=== PATIENT | male | born 1935 | race Caucasian/White ===

== ENCOUNTER → 2023-04-06 10:58 | Outpatient (REF) | payer OTHER, SELFPAY | LOC: RAD 10:58 | PROVIDERS: ATTENDING PHYSICIAN Physical Medicine & Rehabilitation Pain Medicine; FAMILY PHYSICIAN Family Medicine | DX: Z95.0 Presence of cardiac pacemaker (principal) | CPT/HCPCS: 71046 ==

== ENCOUNTER → 2023-04-09 13:17 | Outpatient (REF) | payer OTHER, SELFPAY | LOC: MRI 13:17 | PROVIDERS: ATTENDING PHYSICIAN Physical Medicine & Rehabilitation Pain Medicine; FAMILY PHYSICIAN Family Medicine | DX: M54.50 Low back pain, unspecified (principal); M51.36 Other intervertebral disc degeneration, lumbar region; M54.16 Radiculopathy, lumbar region | CPT/HCPCS: 72158; A9575 ==

== ENCOUNTER → 2023-05-24 12:20 | Outpatient (REF) | payer OTHER, SELFPAY | LOC: RSP 12:20 | PROVIDERS: ATTENDING PHYSICIAN Internal Medicine Cardiovascular Disease; FAMILY PHYSICIAN Family Medicine | DX: J98.4 Other disorders of lung (principal); R06.09 Other forms of dyspnea; R53.83 Other fatigue | CPT/HCPCS: 94727; 94729; 88738; 94010; 94060 ==

== ENCOUNTER → 2023-06-05 09:24 | Outpatient (REF) | payer OTHER, SELFPAY ==
--- NOTE | 2023-05-29 10:24 | TAVREVAL ---
TAVR Evaluation
Transthoracic Echocardiogram
Transthoracic Echocardiogram Date: 03/05/23
EF %: 60
MR/MAC: Bioprosthetic MV, MG 7mmHG
Catherization
Catherization Date: 04/10/23
M.45
KAMALJIT: 1.23
Findings: Non obstructive CAD
CAT Scan
CAT Scan Date: 06/05/23
Labs
Labs:
05/28/2023:
BUN/Creat: 33/1.47
GFR 46
Physician Visits
Date of Visit CT surgeon: Jessee: 06/05/23
Date of Visit Interventionalist:Tova/Favian/Dane/Mendoza: 05/22/23
Primary Systems Engineer Name: Bernardino Caballero
PCP Name: Scott
Review of Systems
Review of Systems: Positive for Dyspnea
Plan
Plan:
05/22/2023: Consult received from Dr. Vela to evaluate for TAVR.
05/28/2023: Called and spoke to patient. Patient needs BMP prior to scheduling CT scan. Script eTransmited to labmarkeduprp. Patient went to have labs drawn. Images of cardiac cath obtained from [facility] Echocardiogram images loaded to CV [facility].
05/29/2023: Labs reviewed with patient. Scheduled for CT scan chest only on 06/[address] surgery consult with Dr. Hooks. Allowed for and answered questions.
06/08/2023: Patient reviewed at SDM meeting by heart team. Anatomically based on CT scan patient is candidate for TAVR. Patient has underlying pulmonary disease so unclear if he will feel relief of his shortness of breath. He is scheduled to see
Jessee on 06/11 and have a repeat Echocardiogram on 06/25. Will discuss once echo is complete and make recommendations. Called and updated patient.
== END ==
LOC: RAD 09:24
PROVIDERS: ATTENDING PHYSICIAN Nurse Practitioner Adult Health
DX: I35.0 Nonrheumatic aortic (valve) stenosis (principal)
CPT/HCPCS: 75572; Q9967

== ENCOUNTER → 2023-06-26 14:01 | Outpatient (REF) | payer OTHER, SELFPAY | LOC: RCS 14:01 | PROVIDERS: ATTENDING PHYSICIAN Internal Medicine Cardiovascular Disease; FAMILY PHYSICIAN Family Medicine | DX: I35.0 Nonrheumatic aortic (valve) stenosis (principal); I48.0 Paroxysmal atrial fibrillation | CPT/HCPCS: 93306 ==

== ENCOUNTER 2023-07-12 07:47 | Inpatient (IN) | payer OTHER, SELFPAY ==
[2023-07-03 08:17] VITALS: BMI 27.0
[2023-07-03 09:07] LABS: % Basophils 0.3 % (0-2); % Eosinophils 1.2 % (0-6); % Immature Granulocytes 0.4 % (0-0.5); % Lymphocytes 33.5 % (20.5-51.1); % Monocytes 8.8 % (1.7-9.3); % Neutrophils 55.8 % (42.2-75.2); Absolute Eosinophils 0.1 10^3/uL (0-0.7); Absolute Lymphocytes 2.3 10^3/uL (1.2-3.4); Absolute Monocytes 0.6 10^3/uL (0.1-0.6); Absolute Neutrophils 3.7 10^3/uL (1.4-6.5); Hematocrit 38.9 % (39.0-52.0); Mean Corp Hgb Conc. 33.4 g/dL (33.0-37.0); Mean Corpuscular Hgb 33.7 pg (27.0-31.0); Mean Corpuscular Volume 100.8 fL (80.0-94.0); Mean Platelet Volume 12.3 fL (7.4-10.4); Nucleated Red Blood Cells % 0 % (-); Platelet Count 124 10^3/uL (130-400); Red Blood Cell Count 3.86 10^6/uL (4.70-6.10); Red Cell Dist. Width 13.7 % (11.5-14.5); White Blood Cell Count 6.7 10^3/uL (4.8-10.8)
[2023-07-03 09:17] LABS: INR 1.88; PT 21.5 Sec (11.4-14.6)
[2023-07-03 09:19] LABS: APTT 30.5 Sec (23.4-35.0)
[2023-07-03 09:24] LABS: ALT (SGPT) 22 U/L (0-50); AST (SGOT) 31 U/L (17-59); Albumin 3.6 g/dl (3.5-5.0); Alkaline Phosphatase 64 U/L (38-126); Blood Urea Nitrogen 27 mg/dl (9-20); Calcium 9.1 mg/dl (8.4-10.2); Carbon Dioxide 25 mmol/L (22-30); Chloride 109 mmol/L (98-107); Direct Bilirubin 0.3 mg/dl (0.0-0.4); Estimated Creatinine Clearance 47 ml/min; Glucose 95 mg/dl (70-99); Potassium 4.8 mmol/L (3.5-5.1); Sodium 141 mmol/L (135-145); Total Bilirubin 0.8 mg/dl (0.2-1.3); Total Protein 6.6 g/dl (6.3-8.2); eGFR 58.89
[2023-07-03 09:27] LABS: NT-proBNP 821 pg/ml
[2023-07-03 10:09] LABS: Glycohemoglobin (HgbA1c) 6.1 % (4.0-5.6)
--- NOTE | 2023-07-03 10:36 | CM ---
Chart reviewed. Met with the patient and his in PAT. Patient is independent of ADLS, lives in a 2 [facility], 1st floor set up, 1 LAURA, 0 DME. Reviewed preoperative and postoperative instructions and restrictions. Gave patient 2 soaps, along with
showering instructions. Patient is agreeable to a visit by CT Transitional RN. Plan is for the patient to return home with CT Transitional RN.
[2023-07-03 13:04] LABS: Urine Albumin Negative (Neg - Trace); Urine Bilirubin Negative (Negative); Urine Character Clear (Clear); Urine Color Yellow; Urine Glucose Negative (Negative); Urine Ketone Negative (Negative); Urine Leukocyte Negative (Negative); Urine Nitrite Negative (Negative); Urine Occult Blood Negative (Negative); Urine Specific Gravity 1.015 (<1.030); Urine Urobilinogen Negative (Neg - 1+)
[2023-07-12] VITALS (16 sets, daily range): BP systolic 98–156; BP diastolic 43–67; BMI 27.3
[2023-07-12 08:33] LABS: INR 1.13; PT 14.3 Sec (11.4-14.6)
--- NOTE | 2023-07-12 09:22 | CM ---
Patient in OR today for TAVR.
Antic. DC plan is for home w/ CT Transitional Care RN.
CM to follow.
[2023-07-12] MEDS: ANCEF 10 IV (10:11)
[2023-07-12 11:06] LABS: ACT-LR - POC 277 Seconds (116-155)
[2023-07-12 11:15] LABS: ACT-LR - POC 300 Seconds (116-155)
[2023-07-12 11:34] LABS: ACT-LR - POC 369 Seconds (116-155)
--- NOTE | 2023-07-12 11:57 | ITS.CL.TAVR ---
Academic Guidance Specialist - TAVR Report
TAVR PRocedure
Procedure Report:
TRANSCATHETER AORTIC VALVE REPLACEMENT REPORT
Date: 07/12/2023
Referring physician: Self-referred.
Preop diagnosis: Moderate to severe aortic valve stenosis.
Postop diagnosis: Moderate to severe aortic valve stenosis.
Procedure: Transcatheter aortic valve replacement (TAVR) using a #29 Medtronic CoreValve Evolut Pro.
Operators: Chet Vela DO, Clint Ballesteros M.D., Dash Hooks M.D.
Findings: Severely calcified and stenotic aortic valve.
Anesthesia: Concious sedation was provided by the anesthesia staff.
Estimated blood loss: Negligable.
Complications: None.
Condition: Stable
Procedure:
The patient was brought to the cardiac laborer shipyard after consent and was prepped and draped in standard sterile fashion. Conscious sedation was provided by the anesthesia staff. After a 'Time Out,' bilateral common femoral arteries and the left
common vein were access using a modified Seldinger technique with a micropuncture kit under ultrasound guidance. A 6 Maldivian sheath was placed in the left femoral vein. Angiography performed through the micropuncture sheath confirmed satisfactory
arterial placement in the right and left common femoral arteries. The micropuncture sheath was replaced with a 6Fr sheath in the left common femoral artery. In the right common femoral artery, the micropuncture sheath was removed and an 8 Maldivian
dilator was advanced over the wire. The dilator was removed and the right common femoral artery was preclosed with 2 Perc-Close devices. An 8 Maldivian sheath was placed in the right common femoral artery. A temporary pacing wire was advanced through
the left femoral vein and into the right ventricle. The pacemaker demonstrated good capture and was set to back up. A 5Fr pigtail catheter was advanced through the left femoral sheath and seated in the non-coronary cusp. The valve overlap (SPRINGER 4,
CAU 36) and three cusp co-planar (AMARA 20, CAU 15) angles were confirmed on aortography.
At this time, Dr. Hooks was urgently called away to an emergency in the CVOR. Dr. Ballesteros was urgently paged to laborer shipyard 1 and assisted with the remainder of the procedure.
An AL-1 catheter was advanced through the 8Fr sheath, the J wire was exchanged for a Lunderquist wire and the catheter and the 8 Fr sheath was removed. A 14 Fr Cook sheath was placed. The CoreValve was prepared on the back table and then inspected
under fluoroscopy. Infolding of the valve was no higher than the 4th node. The AL-1 catheter was advanced over the Lunderquist wire, which was then removed. The catheter was flushed and a straight wire was advanced through the AL-1 catheter. The
straight wire was used to cross the valve, and the AL-1 catheter was prolapsed into the left ventricle. The straight wire was exchanged for an exchange length J-wire and the AL-1 catheter was subsequently exchanged for a 5 Fr pigtail catheter. The
double curve Lunderquist wire was advanced through the pigtail catheter and placed in the apex of the left ventricle. The pigtail catheter was removed.
The Cook sheath was removed and the in-line sheath was advanced over the Lunderquist wire through the RCFA into the descending aorta. The CoreValve was then advanced over the aortic arch and into the left ventricle. In the cusp overlap view, the
valve was slowly deployed to the point of flowering. The patient was rapidly paced in a de-escalating rate (from 140 bpm to 80 bpm) as the valve was deployed through the rumble strips to 80%. Injection confirmed a non-coronary cusp implant depth
of 6 mm. The image intensifier was taken to the 3 cusp overlap view to remove paralax. Injection in this view confirmed left coronary cusp implant depth of 6�7 mm.
Given the relative depth of the valve, the decision was made to recapture and redeployed to avoid ventricular migration. The patient was rapidly paced and the valve was removed from the aortic annulus. We readvanced the valve and redeployed under
de-escalating rapid pacing. After deploying through the rumble chips, angiography was performed in the cusp overlap and 3 cusp coplanar view. The valve depth was now 2-3 mm in the noncoronary cusp and 3-4 mm in the left coronary cusp.
The decision was made to proceed with full deployment. The delivery handle with slowly rotated counter clockwise until both paddles were released from the superior aspect of the valve. The Lunderquist wire was partially withdrawn to lift the
nosecone of the valve delivery device. The delivery device was withdrawn to the descending aorta and re-assembled. Transthoracic echocardiogram showed no paravalvular insufficiency. Aortogram showed good valve deployment and no aortic valve
insufficiency. Mean gradient across the valve was 4 mmHg by echo.
The inline sheath was removed over the Lunderquist wire and hemostasis was achieved using the two Perc-Close devices. Lower extremity angiography showed excellent hemostasis and good runoff without evidence perforation or extravasation. The
pigtail catheter was removed over a J-wire and the left BASEBALL INSPECTOR was closed using a 6-Fr Angioseal. There was no evidence of consistent pacing requirement. The temporary pacer was removed. The venous sheath was removed. Manual pressure was applied
with good hemostasis of the left venous access. The patient was taken to recovery in good condition.
Implant Depth
Non-Coronary (mm): 2�3
Left Coronary (mm): 3�4
Radiation
Dose (mGy): 1185.86
DAP (cm2.Gy): 116.54
Fluoroscopy time (minutes): 14.8
TAVR Echo Gradient (mmHg): 4
LV (s/x, mmHg): 137/25
TAVR Cath Gradient (mmHg): Not obtained.
Conclusions:
1. Successful placement of #29 CoreValve Evolute Pro using a left percutaneous transfemoral approach with no acute complications.
2. Acute on chronic heart failure with elevated filling pressures (LVEDP = 25 at 88.5 kg).
Chet Vela DO, FACC, FACP
Copy: Chet Vela D.O., Bernardino Caballero M.D., Chet Chavez M.D.
--- NOTE | 2023-07-12 11:59 | ITS.CL.TAVR ---
Html Developer - TAVR Report
TAVR PRocedure
Procedure Report:
TRANSCATHETER AORTIC VALVE REPLACEMENT
Date of Procedure: July 12, 2023
Referring: Self-referred
Operators: Drs. Dash Hooks, Chet Vela, Clnit Ballesteros
PROCEDURE PERFORMED:
1. Successful placement of 29 mm Medtronic Evolut Pro+ valve via right femoral artery.
PREPROCEDURE NYHA CLASS: 3
DESCRIPTION OF PROCEDURE: The patient was referred for assessment of severe symptomatic aortic stenosis and following a comprehensive evaluation it was felt that transcatheter aortic valve replacement (TAVR) would be the most appropriate treatment.
Informed consent was obtained prior to the procedure. A 'time-out' was called and the procedural plan was verbally confirmed by anesthesia, surgery, perfusion, and laboratory monitor staff.
Arterial and venous access were obtained in the left common femoral artery and vein using a micropuncture technique and 6 Fr. sheaths were inserted. Arterial access was then obtained in the right common femoral artery and 8 Fr. sheath was placed.
Two Perclose devices were deployed for preclosure before the 8 Fr. sheath was inserted in the right common femoral artery.
A 5 Fr. transvenous pacing wire was then advanced to the right ventricle where excellent pacing thresholds were obtained. A 5 Fr. pigtail catheter was then advanced to the proximal ascending aorta / noncoronary cusp where angiography was performed
to define the the cusp overlap view isolating the non-coronary cusp with overlap of the right and left coronary cusps. The cusp overlap view was KOSOVAN 20 / CAU 15.
An AL1 catheter was then advanced to the proximal descending aorta over a J-wire. A Double-curve OkeoerPopbasic 0.035' wire was placed in the proximal descending thoracic aorta to facilitate delivery of a 14 Fr / 13 cm Cook sheath.
An AL1 catheter was then advanced across the aortic arch and positioned just above the aortic valve. A 0.035' Straight tip wire probed the aortic valve and crossed the stenotic leaflets. The AL1 was then advanced to the mid left ventricle. The
LVEDP measured 25 mmHg consistent with acute on chronic heart failure.
A J-wire was advanced to the left ventricular apex. The AL1 catheter was removed and exchanged for an angled pig-tail catheter. The Double Curve Lunderquist was advanced through the angled pigtail catheter and to the left ventricular apex. The
pigtail catheter was removed.
At this point of the procedure, Dr. Hooks was emergently called to the CT surgery operating room and I was called emergently to the cardiac catheterization hybrid room to assist in completion of the procedure.
The 29 mm Evolut Pro+ valve was inspected under fluoroscopy/cine while rotating the stent delivery system. The stent paddles were within the pocket and no significant crown overlap noted.
The 29 mm Evolut Pro+ valve was advanced over the Lunderquist wire across the stenotic leaflets. The Evolut Pro+ valve was slowly deployed in the cusp overlap view until the valve flared achieving contact at 4-5mm below the noncoronary cusp. The
valve continued to flared achieving contact with the left coronary cusp. The image intensifier was rotated to an KOSOVAN position to remove parallax from the valve with continued valve deployment with controlled pacing. We transitioned quickly through
the rumble strips on the In-Line delivery sheath until the marker band was positioned just below the paddle attachment. Angiography was performed. The valve depth appeared a little deep measuring around 6 mm below the annulus on the left coronary
cusp and the decision was made to recapture the valve. Rapid pacing was undertaken and recapture was performed. The Evolut Pro+ valve was redeployed during rapid pacing. The annular contact measured around 3 mm below the right coronary cusp and 4
mm below the left coronary cusp.
The valve structure was released from the delivery system as we were happy with the valve position. Post deployment angiography had only trivial aortic insufficiency and a mean gradient of 3-4 mmHg.
The Evolut Pro+ delivery system capsule was reunited to the body of the delivery system. The Evolut In-Line sheath was removed and the Perclose knots were advanced to the arteriotomy site resulting in excellent hemostasis. A 6 Fr Angioseal was
utilized for hemostasis in the left femoral artery.
Fluoro Time (min): 14.8, Dose (mGy): 1186, DAP (Gy.cm2) : 116
CONCLUSIONS:
1. Severe symptomatic aortic stenosis. Successful deployment of a 29 mm Evolut Pro+ valve with minimal aortic insufficiency post procedure
2. Successful arteriotomy closure with 2 Perclose devices.
Copy to: Dr. Bernardino Caballero, Dr. Chet Chavez
--- NOTE | 2023-07-12 12:07 | W.CVOR.SURPR ---
CVOR Surgeon Immed Pre Op
-
I have examined this patient prior to performance of the scheduled procedure.
The patient's condition is unchanged from the time of the dictated/written History and
Physical and the patient is able to undergo the scheduled procedure.
--- NOTE | 2023-07-12 12:08 | W.IMMPOSTOP ---
Surgical Immed Post Op Note
-
STRUCTURAL HEART PROCEDURE NOTE:
I was present and participated in all preprocedural multidisciplinary planning. I was alos present during the time-out and assisted in the B/L groin access portions of this procedure. I was then called emergently to the operating room. Dr. Jaramillo
Favian along with Dr. Vela completed the TAVR procedure. Please see their dictations for further information.
Thank you.
Dash Hooks M.D.
--- NOTE | 2023-07-12 12:38 | W.PN.UPDATE ---
Update Note
Progress Note Update
Reviewed Mr. Sykes with the heart team in the preTAVR SDM meeting and confirmed a 29mm Evolut via right transfemoral access. Patient will resume aspirin and warfarin post TAVR. LVEDP 24mmHg. #29mm Evolut (serial# [id number]) successfully deployed via
(R) TF access. Post implant MG 3mmHg.
[2023-07-12] MEDS: ANCEF IV (15:02)
[2023-07-12] MEDS: MULTAQ 400 MG PO (18:09)
[2023-07-12] MEDS: ANCEF 5 IV (18:09)
[2023-07-12] MEDS: PROSCAR 5 MG PO (18:09)
--- NOTE | 2023-07-12 19:21 | PTCARENOTE ---
Pt received from recovery area post TAVR. Bilateral femoral dressings initially dry and intact, no sign of bleeding or hematoma, small ooze from right femoral artery site, dressing changed at 19:15. Pt OOB to bathroom with one assist, pt slightly
unsteady, fall precautions in place. Pt with left shoulder injury from recent fall, ice pack given with good effect. Telemetry shows sinus rhythm with first degree AV block. Neuro checks consistent until 17:50 when he reported visual changes in his
right eye which he stated he has had on 2 other occasions and he had been diagnosed with a 'TIA'. Pt reported blurred vision and seeing blue and purple spots and being unable to accurately see the TV. ROCHELLE Hudson notified and came to see pt. Pt
taken for CT scan of the head urgently.
[2023-07-12] MEDS: DEPAKOTE ER (24 HR RELEASE) 250 MG PO (20:22)
[2023-07-12] MEDS: COUMADIN 7.5 MG PO (20:22)
[2023-07-12] MEDS: ANESTHETIC LOZENGE 1 LOZENGE PO (20:38)
--- NOTE | 2023-07-12 21:54 | PTCARENOTE ---
pt received @ change of shift- just returning from CT. x2 CT- PAs in to see pt at change of shift. Neuro check WNL L arm weaker due to recent fall and possible shoulder injury- ice applied. NIH-3 for blurry vision to the R eye and L arm weakness
(related to possible injury). Ok'd to give Coumadin- B/l groin sites CDI after R side dressing change. pt with complaints of sore throat- Cepacol- given PRN.
[2023-07-13 04:03] VITALS: BP 112/47
[2023-07-13 04:47] LABS: INR 1.16; PT 14.6 Sec (11.4-14.6)
[2023-07-13 05:02] LABS: Hemoglobin 11.3 g/dL (13.0-18.0); Mean Corp Hgb Conc. 33.2 g/dL (33.0-37.0); Mean Corpuscular Hgb 34.3 pg (27.0-31.0); Mean Corpuscular Volume 103.3 fL (80.0-94.0); Mean Platelet Volume 12.9 fL (7.4-10.4); Platelet Count 65 10^3/uL (130-400); Red Blood Cell Count 3.29 10^6/uL (4.70-6.10); White Blood Cell Count 5.6 10^3/uL (4.8-10.8)
[2023-07-13 05:03] LABS: Blood Urea Nitrogen 32 mg/dl (9-20); Calcium 8.6 mg/dl (8.4-10.2); Carbon Dioxide 23 mmol/L (22-30); Chloride 108 mmol/L (98-107); Estimated Creatinine Clearance 43 ml/min; Glucose 87 mg/dl (70-99); Potassium 5.1 mmol/L (3.5-5.1); Sodium 136 mmol/L (135-145)
[2023-07-13 06:00] VITALS: BMI 27.2
--- NOTE | 2023-07-13 06:38 | W.PN.CT ---
Addendum entered and electronically signed by Dash Hooks MD 07/13/23 13:25:
I saw and examined the patient.
The PA's note was reviewed and I agree with the note.
Comment:
Echo today
Resume Coumadin/ASA
Repeat CBC (done - plts improved)
Home today
Original Note:
Today's Communication / Plan
-
-pod #1
-no further vision changes overnight. No new focal deficits
-nsr 60s with intermittent a-paced rhythm overnight. 3 beat PVC run on tele.
-got 7.5 mg Coumadin on 07/11. INR today 1.16
-follow Cr (solitary kidney)- Cr 1.3 today (1.2 preop)
-platelets 65K (124 preop)- will check CBC this afternoon
-Echo today
-current meds (ASA, Coumadin, Multaq, Lipitor, Flomax, Proscar, Depakote)
-encourage IS, OOB, ambulate
Assessment / Plan
-
- Severe symptomatic - s/p Successful placement of #29 CoreValve Evolute Pro TAVR using a left percutaneous transfemoral approach with no acute complications on 07/12/23, pod #1
- Acute on chronic diastolic heart failure with elevated filling pressures (LVEDP = 25 at 88.5 kg).
- Postop TTE: Mean gradient across the valve was 4 mmHg
- Factor 5 Leiden deficiency, hx PE - on ASA and Coumadin preop
- Paroxysmal a-fib
- s/p pacer implant 2021
- Severe MR - s/p bioprosthetic MVR and ASD closure in 2019 at [facility] by Dr. Vega
- Atherosclerosis of aorta
- Chronic restrictive lung dz/COPD
- CKD 3b, solitary kidney
- Hx renal CA - s/p L kidney removal in 1998
- Hyperlipidemia
- Prediabetes (HgA1c 6.1)
- R lung surgery 1980
- Remote hx of smoking
- ITP
- Seizure
- Hx TIA (tiny L lacunar infarct on head CT this admission)
- AAA
- DJD with back fusion/laminectomy in 2016
- EF 60-65% by Echo 03/05/23
- Non-obstructive CAD by cath 04/10/23
- Stable noncalcified R lung nodules measuring upto 6 mm. No new nodules (CT scan 03/22/23)
- R eye vision change postop (part of picture on TV appears different color). Vision intact b/l, no other focal deficits
-Head CT: No acute intracranial abnormality noted. Specifically, no acute intracranial hemorrhage. Tiny chronic lacunar infarct. Acute superimposed on chronic sinusitis.
-pt states that he occasionally gets similar vision change and it resolves spontaneously. He reports having Carotid US about 1 year ago with 20% stenosis on R and 50-75% on L (no report available in [facility])
Discussed patient care with: Nursing and Care Team
Subjective
Procedure
- s/p Successful placement of #29 CoreValve Evolute Pro TAVR using a left percutaneous transfemoral approach with no acute complications on 07/12/23
-
Date of Service: July 13, 2023
Objective Data
-
PT 14.3 Sec (11.4-14.6) 07/12/23 08:06
INR 1.13 07/12/23 08:06
APTT 30.5 Sec (23.4-35.0) 07/03/23 08:43
Vital Signs
Vital Signs
Temp Pulse Resp BP Pulse Ox
98.3 F 60 20 103/43 97
07/12/23 23:37 07/12/23 21:00 07/12/23 23:37 07/12/23 19:55 07/12/23 23:37
CT Intake/Output/Weight
07/12/23 07/12/23 07/13/23
06:59 18:59 06:59
Intake Total 1100 / 1100
Balance 1100 / 1100
SaO2: 97
Physical Exam
-
General: Awake and AOx3
Cardiovascular: Regular rate & rhythm, No Murmurs and No Rub
Respiratory: Clear
Incision: Other (groins are nontender, soft, cdi, no hematoma b/l)
Extremities: Other (RLE trace edema, LLE 1+ edema (chronic) with brown skin discoloration; 2+ DPs b/l)
Data Reviewed
-
Lab Results: Results Reviewed
Medications: Active Meds Reviewed
Chest X-Ray: Report Reviewed and Image Reviewed
ECG: Report Reviewed and Image Reviewed
[2023-07-13 07:05] VITALS: BP 119/52
--- NOTE | 2023-07-13 07:42 | W.PN.CD ---
Today's Communication / Plan
-
Furosemide 40 mg IV x1 now.
Resume home furosemide at 40 mg PO daily.
Repeat echo pending.
Repeat CBC pending.
If H/H & platelets are truly falling, check HIT panel, hemolysis labs and consult hematology for possible ITP exacerbation.
Outpatient BMP in one week.
Discharge planning.
Impression / Plan
-
Impression/Plan: 88 y/o male with severe MR s/p surgical MVR, PPM, severe pulmonary disease, ITP and Factor V Leiden on warfarin and moderate/severe aortic valve stenosis admitted after elective TAVR.
#Severe aortic valve stenosis
-S/P #29 Medtronic CoreValve Evolut TAVR via right femoral approach, 07/12/2023.
-Conduction stable (PPM in place).
-Transient visual disturbance. Present prior to TAVR. CT head negative for hemorrhage. Seems inconsistent with embolic event. Resolved. More likely complex migraine?
-Access sites are C/D/I.
-Antithrombotic therapy with warfarin (resumed last night).
-Repeat echo this morning.
-Ambulate.
-Discharge planning.
#Acute on chronic HFpEF
-LVEDP 25 mmHg during TAVR.
-Furosemide 40 mg IV x1 now.
-Resume furosemide 40 mg PO daily.
-Outpatient BMP in one week.
#Factor V Leidin
-Chronic, stable.
-Resume warfarin.
#ITP
-Chronic.
-Platelets down to 62K.
-H/H is also down from preop. Repeat CBC pending (laboratory error vs. ITP exacerbation/hemolysis).
-If H/H and platelets are truly falling, we will check hemolysis labs, HIT panel and consult hematology.
#Severe pulmonary disease
-Chronic, stable.
-Resume home medications.
#Dispo
-IVU status.
-Discharge planning.
Subjective/Interval History:
S/P TAVR yesterday.
Post procedure, the patient reported some visual disturbance, describing moving visual field cuts, not always present.
The patient reports that these deficits are transient and have occurred prior to TAVR.
DATA:
TAVR, 07/12/2023:
Conclusions:
1. Successful placement of #29 CoreValve Evolute Pro using a left percutaneous transfemoral approach with no acute complications.
2. Acute on chronic heart failure with elevated filling pressures (LVEDP = 25 at 88.5 kg).
Physical Exam
Vital Signs/Labs
Vital Signs
Temp Pulse Resp BP Pulse Ox
36.8 C 72 16 112/47 94
07/13/23 07:05 07/13/23 07:05 07/13/23 07:05 07/13/23 04:03 07/13/23 07:05
07/11/23 07/12/23 07/13/23
11:59 11:59 11:59
Actual Weight 88.6 kg
07/13/23 04:12
PT 14.6 Sec (11.4-14.6) 07/13/23 04:12
INR 1.16 07/13/23 04:12
APTT 30.5 Sec (23.4-35.0) 07/03/23 08:43
07/03/23
08:43
[facility] Pept 821
Physical Exam
Constitutional: No acute distress and Comfortable
EENT: Anicteric and Moist mucous membranes
Cardiovascular: Rhythm & rate is regular, Pedal edema is absent, JVD pressure is normal, S1S2 is normal and Murmur/rub/gallop absent
Respiratory: Respiratory effort normal, Lungs clear to auscul., Wheeze Absent, Crackles Absent and Rhonchi Absent
GI: Soft, Distention absent, Flat, Non tender and Normal bowel sounds
Neuro/Psych: AO x 3
Other: Cath Site (Bilateral LE access sites are C/D/I.)
Data Reviewed
-
Date of Service: July 13, 2023
Medical Decision Making: Reviewed Test Results and Independent Historian Assessment
EKG: Tracing Personally Visualized and interpreted and Report Reviewed by me
Echo: Tracing Personally Visualized and interpreted and Report Reviewed by me
X-Ray/CT/US/MRI/NUC/PET: Image Personally Visualized and interpreted and Report Reviewed by me
Medical Tests (PFT, Pathology etc): Image Personally Visualized and interpreted and Report Reviewed by me
Labs: Labs Reviewed by me
Old Records: Reviewed
--- NOTE | 2023-07-13 07:59 | W.DCSUMMARY ---
Discharge Summary
Discharge Data
Date of Admission: 07/12/23
Date of Discharge: 07/13/23
Total time spent discharging patient (in min): 35
-
Pending Results: No
Hospital Course
Primary care physician:
Dr. Chavez
Outpatient dog licenser:
Dr. Vela
Inpatient consultants:
[facility] cardiology
Procedures:
1. Left transfemoral transcatheter aortic valve replacement with a #29 CoreValve evolute Pro valve
Primary Diagnosis:
1. Severe aortic stenosis
Secondary Diagnoses:
1. Chronic obstructive pulmonary disease
2. Atrial fibrillation
3. Factor V Leiden
4. Idiopathic thrombocytopenia purpura
5. Renal cell cancer status post left nephrectomy
6. Seizures
7. laminectomy
HPI: 88-year-old male with past medical history significant for aortic stenosis presented electively on 07/11 for a transfemoral transcatheter aortic valve replacement with Dr. Hooks.
Hospital course:
Patient was electively admitted on 07/11 for a transcatheter aortic valve replacement with Dr. Hooks. There were no intra-op events and patient went to clinical laboratory technologist recovery. B/l groins remain stable. He was sent to IVU for the remainder of their
recovery. Later that evening, he started complaining color changes and blurriness in his left eye. He stated that it was not a new symptom and it has been intermittently happening at home. A stat CTH was preformed to rule out intracerebral
hemorrhage. CTH did not show any bleeding. On 07/12, POD #1, B/L groins remained stable. Home medications were resumed. there was an acute drop in platelets so a repeat CBC was preformed and platelets were beginning to recover. Repeat TTE showed a
Peak/mean gradients across the aortic valve are 22/11 mmHg. He was deemed stable for discharge.
Home medication changes:
See below
Discharge Plan
-
Patient Disposition: Home (Routine Discharge)
Discharge Diagnosis/Procedures: TF-TAVR
Condition: Fair
Diet: Low Cholesterol and 2 Gram Sodium
Activity: As tolerated
Driving Restrictions: No driving for 1 week
Bathing Restrictions: OK to Shower
Blood Work: Repeat CBC in 1 week
Others Tests: 30 Day Follow Up Echocardiogram: 08/14/2023 at 9:20am at the [facility]
Other Services: Cardiac Rehab
Wound Care: Please do not apply lotions, creams or powders to groin areas. Please monitor for increased pain, swelling, redness or drainage. Please notify your doctor if any occur.
Specialty Instructions: Weigh Daily- Call MD for wt gain/loss 3 lbs overnight/5 lbs in 1 week
Referrals:
CT Transitional Care Nurse [Outside] - in one to two days
(
The Cardiothoracic Transitional Care Nurse will call you to set up a visit in 1-2 days.)
[facility]. Cardiac Rehab [Outside] - 08/10/23 10:00 am
(Cardiac Rehab Orientation appointment is on 08/10/23 at 10 am
The Cardiac Rehab gym is located on the first floor of the [facility].)
Yeimy Freeman NP [Specified Professional Personl] - 08/06/23 2:00 pm
Chet Chavez MD [Family Provider] - in four to six weeks (Please make an appointment in four to six weeks.)
Prescriptions:
Continued
atorvastatin 40 mg Tablet
40 mg PO DAILY
cyanocobalamin (vitamin B-12) [Vitamin B-12] 1,000 mcg Tablet
1,000 mcg PO MOTUWETHFR
aspirin 81 mg Tablet,Delayed Release (Dr/Ec)
81 mg PO DAILY
acetaminophen 500 mg Tablet
1,000 mg PO Q6H PRN (Reason: pain)
tamsulosin 0.4 mg Capsule
0.4 mg PO DAILY
albuterol sulfate [ProAir HFA] 90 mcg/actuation Hfa Aerosol Inhaler
2 puff INHALATION PRN PRN (Reason: SOB)
finasteride 5 mg Tablet
5 mg PO QPM
cholecalciferol (vitamin D3) [Vitamin D3] 25 mcg (1,000 unit) Capsule
25 mcg PO MOTH
Multaq 400 mg Tablet
400 mg PO BID
furosemide [Lasix] 20 mg Tablet
20 mg PO DAILYPRN PRN (Reason: LLE swelling)
divalproex [Depakote ER] 500 mg Tablet Extended Release 24 Hr
500 mg PO DAILY
divalproex [Depakote ER] 250 mg Tablet Extended Release 24 Hr
250 mg PO QPM
warfarin 7.5 mg Tablet
7.5 mg PO MOTH
warfarin 5 mg Tablet
5 mg PO SUTUWEFRSA
Discharge Orders:
Discharge Patient (As Directed); Ordered 07/13/23
Ordered By: Rosalva Suárez
Care Plan Goals
Care Plan Goals:
Problem: Readiness for enhanced knowledge related to diagnosis and treatment plan
Goal: Understand your diagnosis and treatment plan needs, including medications if applicable.
Instructions: Know your diagnosis, underlying causes and treatment plan options, including medications if applicable. Consult with your health care team to learn about your diagnosis and treatment plan, including medications if applicable.
Discharge Date and Time
Print Language: CAPE VERDEAN
--- NOTE | 2023-07-13 08:11 | W.PN.ANS.POP ---
Anesthesia Post Operative
- Anesthesia Post Op Note
Vital Signs Stable-See Nursing Note: Yes
Airway Patent: Yes
Adequate Pain Control: Yes
Change in Mental Status: No
Current Postoperative Nausea & Vomiting: No
Anesthesia Complications: No
General Anesthetic Recall: No
Unplanned Admission: No
Post Op Hydration Adequate: Yes
- -
Pt awake and alert- resting comfortably with no anesthesia related c/o at time of post op.
[2023-07-13] MEDS: LIPITOR 40 MG PO (08:59)
[2023-07-13] MEDS: ASPIR LOW (ENTERIC COATED) 81 MG PO (08:59)
[2023-07-13] MEDS: MULTAQ 400 MG PO (08:59)
[2023-07-13] MEDS: FLOMAX 0.400000000000000022 MG PO (08:59)
[2023-07-13] MEDS: DEPAKOTE ER (24 HR RELEASE) 500 MG PO (08:59)
[2023-07-13] MEDS: VITAMIN B-12 1000 MCG PO (09:06)
[2023-07-13] MEDS: LASIX 40 MG IV (10:30)
[2023-07-13 10:31] VITALS: BP 116/55
[2023-07-13] MEDS: ANESTHETIC LOZENGE 1 LOZENGE PO ×2 (10:33→14:37)
[2023-07-13 12:25] LABS: Hemoglobin 13.2 g/dL (13.0-18.0); Mean Corpuscular Hgb 34.1 pg (27.0-31.0); Mean Corpuscular Volume 103.4 fL (80.0-94.0); Mean Platelet Volume 12.5 fL (7.4-10.4); Platelet Count 73 10^3/uL (130-400); Red Blood Cell Count 3.87 10^6/uL (4.70-6.10); Red Cell Dist. Width 14.2 % (11.5-14.5); White Blood Cell Count 7.1 10^3/uL (4.8-10.8)
--- NOTE | 2023-07-13 13:20 | CM ---
Reviewed chart. Met with and Mrs. Sykes to review discharge plans. He states he is feeling well. He states he has been ambulating in the room. He states prior to admission he resides with his spouse in a two story home with two steps to
enter. He states he has a first floor set-up. He states prior to admission he was independent with ambulation and adls. He states he does not have any DME in the home. He states he has a prescription plan and uses [facility]. We reviewed a
home visit by the Cardiothoracic Transitional Care Nurse. He is agreeable to a home visit. His spouse states she will be home to assist in his care if needed. Medical work-up in progress. The discharge plan is to return home home with his spouse
and a home visit by the Cardiothoracic Transitional Care Nurse when medically stable.
[2023-07-13 15:00] VITALS: BP 105/46
[2023-07-13 15:06] VITALS: BP 150/50
[2023-07-13 15:12] VITALS: BP 105/46; BP 150/50; PULSE 82; O2SAT 95; O2SAT 97
--- NOTE | 2023-07-13 16:19 | PTCARENOTE ---
d/c instructions read to pt and pt verbalized understanding. pt left with educational material, belongings from room, and info cards. removed ivx2 and tele pack. pt left via wheelchair with staff member.
== END 2023-07-13 16:18 | disposition home or self-care (01) | DRG 266 ==
LOC: IVU 07:47
PROVIDERS: Physician Assistant Medical; ADMITTING PHYSICIAN Thoracic Surgery (Cardiothoracic Vascular Surgery); CONSULT PHYSICIAN Internal Medicine Cardiovascular Disease; FAMILY PHYSICIAN Family Medicine
PROC: 02RF38Z Replacement of Aortic Valve with Zooplastic Tissue, Percutaneous Approach (ICD-10-PCS; 2023-07-12)
DX: I35.0 Nonrheumatic aortic (valve) stenosis (principal); I50.33 Acute on chronic diastolic (congestive) heart failure; D68.51 Activated protein C resistance; D69.3 Immune thrombocytopenic purpura; I48.0 Paroxysmal atrial fibrillation; I70.0 Atherosclerosis of aorta; J44.9 Chronic obstructive pulmonary disease, unspecified; N18.32 Chronic kidney disease, stage 3b; E78.5 Hyperlipidemia, unspecified; R73.03 Prediabetes; I71.40 Abdominal aortic aneurysm, without rupture, unspecified; I25.10 Atherosclerotic heart disease of native coronary artery without angina pectoris; H53.8 Other visual disturbances; Z79.01 Long term (current) use of anticoagulants; Z79.82 Long term (current) use of aspirin; Z85.528 Personal history of other malignant neoplasm of kidney; Z86.711 Personal history of pulmonary embolism; Z86.73 Personal history of transient ischemic attack (TIA), and cerebral infarction without residual deficits; Z87.891 Personal history of nicotine dependence; Z95.0 Presence of cardiac pacemaker; Z95.3 Presence of xenogenic heart valve; Z98.1 Arthrodesis status
CPT/HCPCS: 93308; 33361; 36415; 70450; 71045; 71046; 80048; 80053; 81003; 82248; 83036; 83880; 85025; 85027; 85347; 85610; 85730; 86850; 86900; 86901; 87070; 93005; 93306; 93321; 93325; C1760; C1769; C1894; Q9967

== ENCOUNTER → 2023-08-14 09:13 | Outpatient (REF) | payer OTHER, SELFPAY | LOC: HWRCS 09:13 | PROVIDERS: ATTENDING PHYSICIAN Internal Medicine Cardiovascular Disease; FAMILY PHYSICIAN Family Medicine | DX: I35.0 Nonrheumatic aortic (valve) stenosis (principal) | CPT/HCPCS: 93306 ==

== ENCOUNTER 2023-11-12 10:04 | Outpatient (RCR) | payer OTHER, SELFPAY | END 2023-11-12 23:59 | disposition home or self-care (01) | LOC: CRHB 10:04 | PROVIDERS: ATTENDING PHYSICIAN Internal Medicine Cardiovascular Disease; FAMILY PHYSICIAN Family Medicine | DX: Z95.4 Presence of other heart-valve replacement (principal) | CPT/HCPCS: G0422; G0423 ==

== ENCOUNTER 2023-12-10 10:28 | Outpatient (RCR) | payer OTHER, SELFPAY | END 2023-12-10 23:59 | disposition home or self-care (01) | LOC: CRHB 10:28 | PROVIDERS: ATTENDING PHYSICIAN Internal Medicine Cardiovascular Disease; FAMILY PHYSICIAN Family Medicine | DX: Z95.4 Presence of other heart-valve replacement (principal) | CPT/HCPCS: G0422; G0423 ==

== ENCOUNTER 2024-01-11 09:37 | Outpatient (RCR) | payer OTHER, SELFPAY | END 2024-01-11 23:59 | disposition home or self-care (01) | LOC: CRHB 09:37 | PROVIDERS: ATTENDING PHYSICIAN Internal Medicine Cardiovascular Disease; FAMILY PHYSICIAN Family Medicine | DX: Z95.4 Presence of other heart-valve replacement (principal) | CPT/HCPCS: G0422; G0423 ==

== ENCOUNTER 2024-02-11 10:45 | Outpatient (RCR) | payer OTHER, SELFPAY | END 2024-02-11 23:59 | disposition home or self-care (01) | LOC: CRHB 10:45 | PROVIDERS: ATTENDING PHYSICIAN Internal Medicine Cardiovascular Disease; FAMILY PHYSICIAN Family Medicine | DX: Z95.4 Presence of other heart-valve replacement (principal) | CPT/HCPCS: G0422; G0423 ==

== ENCOUNTER 2024-03-10 09:00 | Outpatient (RCR) | payer OTHER, SELFPAY ==
[2024-03-07 08:54] LABS: HDL Cholesterol 64 mg/dl; LDL Cholesterol, Calculated 63 mg/dl; Total Cholesterol 140 mg/dl (50-199); Triglyceride 67 mg/dl (10-149); Very Low Density Lipoprotein 13 mg/dl (0-30)
== END 2024-03-10 23:59 | disposition home or self-care (01) ==
LOC: CRHB 09:00
PROVIDERS: ATTENDING PHYSICIAN Internal Medicine Cardiovascular Disease; FAMILY PHYSICIAN Family Medicine
DX: Z95.4 Presence of other heart-valve replacement (principal)
CPT/HCPCS: 36415; 80061; G0422; G0423

== ENCOUNTER → 2024-03-24 08:56 | Outpatient (REF) | payer OTHER, SELFPAY | LOC: WDC 08:56 | PROVIDERS: ATTENDING PHYSICIAN Family Medicine | DX: N64.4 Mastodynia (principal) | CPT/HCPCS: 76642; 77062; 77066 ==

== ENCOUNTER → 2024-03-25 14:12 | Outpatient (REF) | payer OTHER, SELFPAY | LOC: HWRAD 14:12 | PROVIDERS: ATTENDING PHYSICIAN Internal Medicine Nephrology; FAMILY PHYSICIAN Family Medicine | DX: N17.9 Acute kidney failure, unspecified (principal); N18.30 Chronic kidney disease, stage 3 unspecified | CPT/HCPCS: 76775 ==

== ENCOUNTER 2024-06-19 12:46 | Emergency (ER) | payer OTHER, SELFPAY ==
[2024-06-19 12:47] VITALS: BP 149/64
[2024-06-19 13:16] LABS: % Basophils 0.4 % (0-2); % Eosinophils 0.8 % (0-6); % Immature Granulocytes 0.1 % (0-0.5); % Lymphocytes 35.7 % (20.5-51.1); % Monocytes 10.8 % (1.7-9.3); % Neutrophils 52.2 % (42.2-75.2); Absolute Eosinophils 0.1 10^3/uL (0-0.7); Absolute Lymphocytes 2.7 10^3/uL (1.2-3.4); Absolute Monocytes 0.8 10^3/uL (0.1-0.6); Absolute Neutrophils 3.9 10^3/uL (1.4-6.5); Hematocrit 43.4 % (39.0-52.0); Hemoglobin 14.8 g/dL (13.0-18.0); Mean Corp Hgb Conc. 34.1 g/dL (33.0-37.0); Mean Corpuscular Hgb 34.4 pg (27.0-31.0); Mean Corpuscular Volume 100.9 fL (80.0-94.0); Mean Platelet Volume 11.9 fL (7.4-10.4); Nucleated Red Blood Cells % 0 % (-); Platelet Count 117 10^3/uL (130-400); Red Cell Dist. Width 13.7 % (11.5-14.5); White Blood Cell Count 7.5 10^3/uL (4.8-10.8)
[2024-06-19 13:27] LABS: ALT (SGPT) 24 U/L (0-50); AST (SGOT) 30 U/L (17-59); Alkaline Phosphatase 53 U/L (38-126); Blood Urea Nitrogen 38 mg/dl (9-20); Carbon Dioxide 27 mmol/L (22-30); Chloride 106 mmol/L (98-107); Glucose 95 mg/dl (70-99); Potassium 4.7 mmol/L (3.5-5.1); Sodium 143 mmol/L (135-145); Total Bilirubin 0.7 mg/dl (0.2-1.3); Total Protein 7.1 g/dl (6.3-8.2); eGFR 44.78
--- NOTE | 2024-06-19 14:54 | ED.GENMED ---
History of Present Illness
General
Chief Complaint: Dizziness
Time Seen by Provider: 06/19/24 14:37
History of Present Illness
History of Present Illness:
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 States that yesterday he was feeling slightly dizzy however the symptoms have
entirely resolved at this time. This morning while he was showering he had a period of forgetfulness where he suddenly came to when he was out of the shower and dry. He does not remember the moments between showering and this back to his baseline
now denies any complaints. States prior seizures have presented like this. There has been no recent changes in his medication. Denies any headache. Denies any recent injuries. Denies any focal weakness, sensory loss, difficulty speaking,
changes in vision.
Phy Exam
Physical Exam
Physical Exam:
GENERAL APPEARANCE: NAD, well developed/ well nourished
EYES lids/conjunctiva normal
EARS/NOSE/THROAT Mucous membranes moist, uvula midline without oral pharyngeal erythema, exudate or swelling
HEAD/NECK normocephalic atraumatic, neck is supple.
RESPIRATORY respiratory effort normal, speaks in full sentences, no accessory muscle use. Lungs clear to auscultation without rhonchi, wheezes, rales
CARDIAC Regular rate and rhythm, no edema.
ABDOMINAL Soft, ND/NT. No pulsatile masses on exam, rebound tenderness, Sykes sign or pain over Mcburney's point.
MUSCLES/EXTREMITIES No abnormal range of motion, no swelling.
SKIN Warm, pink and dry. No rashes
NEUROLOGICAL Speech is clear and appropriate. Normal level of consciousness. Cranial nerves II through XII intact. Sensation intact to light touch throughout. Romberg negative. Good balance. No dysmetria or ataxia. No nystagmus. 5/5 strength
in all extremities.
PSYCH Normal mood and affect. Judgement/competence is appropriate
Course
Orders/Labs/Results
Orders:
Orders
06/19/24 12:53
CT Head W/o Iv Contrast Urgent
Comment:
Reason For Exam: dizziness, forgetting events today
06/19/24 12:58
Complete Blood Count/With Diff Urgent
Comprehensive Metabolic Panel Urgent
06/19/24 15:44
Valproic Acid Level [Depakane] Urgent
Abnormal Lab Results
06/19/24
12:58
RBC 4.30 L 10^6/uL
(4.70-6.10)
MCV 100.9 H fL
(80.0-94.0)
MCH 34.4 H pg
(27.0-31.0)
Plt Count 117 L 10^3/uL
(130-400)
MPV 11.9 H fL
(7.4-10.4)
Absolute Monos (auto) 0.8 H 10^3/uL
(0.1-0.6)
Monocytes % 10.8 H %
(1.7-9.3)
BUN 38 H mg/dl
(9-20)
Creatinine 1.5 H mg/dL
(0.7-1.3)
06/19/24 12:58
06/19/24 12:58
Vital Signs
Initial and Last Documented VS:
Initial Vital Signs
Temp Pulse Resp BP Pulse Ox
97.6 F 76 18 149/64 95
06/19/24 12:47 06/19/24 12:47 06/19/24 12:47 06/19/24 12:47 06/19/24 12:47
Last Documented Vital Signs
Temp Pulse Resp BP Pulse Ox
97.6 F 76 18 149/64 95
06/19/24 12:47 06/19/24 12:47 06/19/24 12:47 06/19/24 12:47 06/19/24 12:47
*Critical Care Note
Total Time (30-74mins, 75-104mins- exclusive of procedures): Not Applicable
ED Attending Note
ED Attending Note
ED Attending Note:
patient is currently at baseline status
no neurological deficits or symptoms
consistent with prior seizures
will refer to neurology for outpatient workup
depakote level is wnl
brain CT without acute process
no fever or meningeal signs
-
Portions of this chart may have been created with voice recognition software.� Occasional wrong word or��sound alike� substitutions may have occurred due to the inherent limitations of voice recognition software.
Discharge Plan
Departure
Patient Disposition: Home (Routine Discharge)
Date of Disposition: 06/19/24
Time of Disposition: 16:21
Patient with high blood pressure during this ER visit?: Yes
Discharge Problem:
Altered level of consciousness
Instructions: Seizures in adults - ED discharge instructions
Prescriptions:
No Action
atorvastatin 40 mg Tablet
40 mg PO DAILY
cyanocobalamin (vitamin B-12) [Vitamin B-12] 1,000 mcg Tablet
1,000 mcg PO MOTUWETHFR
aspirin 81 mg Tablet,Delayed Release (Dr/Ec)
81 mg PO DAILY
acetaminophen 500 mg Tablet
1,000 mg PO Q6H PRN (Reason: pain)
tamsulosin 0.4 mg Capsule
0.4 mg PO DAILY
albuterol sulfate [ProAir HFA] 90 mcg/actuation Hfa Aerosol Inhaler
2 puff INHALATION PRN PRN (Reason: SOB)
finasteride 5 mg Tablet
5 mg PO QPM
cholecalciferol (vitamin D3) [Vitamin D3] 25 mcg (1,000 unit) Capsule
25 mcg PO MOTH
Multaq 400 mg Tablet
400 mg PO BID
furosemide [Lasix] 20 mg Tablet
20 mg PO DAILYPRN PRN (Reason: LLE swelling)
divalproex [Depakote ER] 500 mg Tablet Extended Release 24 Hr
500 mg PO DAILY
divalproex [Depakote ER] 250 mg Tablet Extended Release 24 Hr
250 mg PO QPM
warfarin 7.5 mg Tablet
7.5 mg PO MOTH
warfarin 5 mg Tablet
5 mg PO SUTUWEFRSA
Referrals:
Chet Chavez MD [Family Provider] -
Activity Restrictions/Additional Instructions:
please follow up with your primary doctor and a neurologist as soon as possible
your depakote level was within normal limits
CT head did not show any emegent conditions
Interventions
Interventions:
*Risk Screen - Suicide Last Done: 06/19/24 12:47
*General Assessment Last Done: 06/19/24 12:47
*Neglect/Abuse Screening Last Done: 06/19/24 12:47
*ED COVID-19 Vaccine History Last Done: 06/19/24 12:47
*Nursing Disposition Last Done: 06/19/24 17:00
ED- Neurological Assessment Last Done: 06/19/24 16:57
ED- Cardiac Assessment Last Done: 06/19/24 16:58
Discharge Date and Time
Discharge Date/Time: 06/19/24 17:01
Print Language: VIETNAMESE
[2024-06-19 16:19] LABS: Depakane 59.6 ug/ml (50.0-120.0)
== END 2024-06-19 17:01 | disposition home or self-care (01) ==
LOC: EMR 12:46
PROVIDERS: Emergency Medicine; EMERGENCY PHYSICIAN Emergency Medicine; FAMILY PHYSICIAN Family Medicine
DX: R40.4 Transient alteration of awareness (principal); Z82.0 Family history of epilepsy and other diseases of the nervous system
CPT/HCPCS: 99284; 70450; 80053; 80164; 85025

== ENCOUNTER → 2024-06-27 13:39 | Outpatient (REF) | payer OTHER, SELFPAY | LOC: RAD 13:39 | PROVIDERS: ATTENDING PHYSICIAN Internal Medicine Nephrology; FAMILY PHYSICIAN Family Medicine | DX: N17.9 Acute kidney failure, unspecified (principal) | CPT/HCPCS: 76775; 93975 ==

== ENCOUNTER → 2024-07-29 09:10 | Outpatient (REF) | payer OTHER, SELFPAY | LOC: RCS 09:10 | PROVIDERS: ATTENDING PHYSICIAN Internal Medicine Cardiovascular Disease; FAMILY PHYSICIAN Family Medicine | DX: I48.0 Paroxysmal atrial fibrillation (principal); R06.09 Other forms of dyspnea; Z95.2 Presence of prosthetic heart valve | CPT/HCPCS: 93306 ==

== ENCOUNTER 2025-01-15 13:18 | Emergency (ER) | payer OTHER, SELFPAY ==
[2025-01-15 13:25] VITALS: BP 139/60
--- NOTE | 2025-01-15 16:37 | ED.GENMED ---
History of Present Illness
General
Chief Complaint: Nose Bleed
Time Seen by Provider: 01/15/25 14:30
History of Present Illness
History of Present Illness:
89-year-old male presents to the emergency department for evaluation of nosebleeding throughout the course of today. He is on Coumadin for factor V.
Review of Systems
Review of Systems
Allergies reviewed?: Yes
All Other Systems: ROS reviewed and negative except as documented in HPI and ROS
Phy Exam
Physical Exam
Physical Exam:
GEN: Well appearing, NAD, WDWN
HEENT: Oral mucosa moist, no scleral icterus, copious bleeding from the anterior right nare, no oropharyngeal bleeding
Cardiac: Regular rate
Lung: No respiratory distress, no tachypnea
MSK: No gross deformity or injuries
Skin: Good color, no pallor or jaundice, no rashes
Neuro: AO x3, moves all extremities freely
Psych: Calm, cooperative
Course
Vital Signs
Initial and Last Documented VS:
Initial Vital Signs
Temp Pulse Resp BP Pulse Ox
98.2 F 72 16 139/60 99
01/15/25 13:25 01/15/25 13:25 01/15/25 13:25 01/15/25 13:25 01/15/25 13:25
Last Documented Vital Signs
Temp Pulse Resp BP Pulse Ox
98.2 F 72 16 139/60 99
01/15/25 13:25 01/15/25 13:25 01/15/25 13:25 01/15/25 13:25 01/15/25 16:38
Procedures
Nosebleed
Drug treatment: Lidocaine and Epinephrine
Treatment: Silver nitrate cautery
Post treatment bleeding: none- good control
MDM/Problems Addressed
MDM/Problems Addressed:
Initially packed with epinephrine soaked pledget, after removal there was evidence of recent bleeding to the anterior nasal septum and this was cauterized in 2 separate locations with no further bleeding identified.
*Pulse Oximetry
SaO2: 99
Oxygen Mode of Delivery: Room air
Patient hypoxic: no
*Critical Care Note
Total Time (30-74mins, 75-104mins- exclusive of procedures): Not Applicable
ED Attending Note
-
Portions of this chart may have been created with voice recognition software.� Occasional wrong word or��sound alike� substitutions may have occurred due to the inherent limitations of voice recognition software.
Discharge Plan
Departure
Patient Disposition: Home (Routine Discharge)
Date of Disposition: 01/15/25
Time of Disposition: 16:37
Patient with high blood pressure during this ER visit?: No
Discharge Problem:
Epistaxis
Instructions: Nosebleeds (DC)
Prescriptions:
No Action
atorvastatin 40 mg Tablet
40 mg PO DAILY
cyanocobalamin (vitamin B-12) [Vitamin B-12] 1,000 mcg Tablet
1,000 mcg PO MOTUWETHFR
aspirin 81 mg Tablet,Delayed Release (Dr/Ec)
81 mg PO DAILY
acetaminophen 500 mg Tablet
1,000 mg PO Q6H PRN (Reason: pain)
tamsulosin 0.4 mg Capsule
0.4 mg PO DAILY
albuterol sulfate [ProAir HFA] 90 mcg/actuation Hfa Aerosol Inhaler
2 puff INHALATION PRN PRN (Reason: SOB)
finasteride 5 mg Tablet
5 mg PO QPM
cholecalciferol (vitamin D3) [Vitamin D3] 25 mcg (1,000 unit) Capsule
25 mcg PO MOTH
Multaq 400 mg Tablet
400 mg PO BID
furosemide [Lasix] 20 mg Tablet
20 mg PO DAILYPRN PRN (Reason: LLE swelling)
divalproex [Depakote ER] 500 mg Tablet Extended Release 24 Hr
500 mg PO DAILY
divalproex [Depakote ER] 250 mg Tablet Extended Release 24 Hr
250 mg PO QPM
warfarin 7.5 mg Tablet
7.5 mg PO MOTH
warfarin 5 mg Tablet
5 mg PO SUTUWEFRSA
Referrals:
Chet Chavez MD [Family Provider, [facility]]
Activity Restrictions/Additional Instructions:
Apply a small amount of Neosporin to the right nostril twice daily for the next week
Interventions
Interventions:
*Risk Screen - Suicide Last Done: 01/15/25 13:25
*Neglect/Abuse Screening Last Done: 01/15/25 13:25
*Nursing Disposition Last Done: 01/15/25 17:00
Discharge Date and Time
Discharge Date/Time: 01/15/25 17:00
Print Language: BELARUSIAN
== END 2025-01-15 17:00 | disposition home or self-care (01) ==
LOC: EMR 13:18
PROVIDERS: EMERGENCY PHYSICIAN Emergency Medicine; FAMILY PHYSICIAN Family Medicine
DX: R04.0 Epistaxis (principal); D68.51 Activated protein C resistance; Z79.01 Long term (current) use of anticoagulants; Z79.82 Long term (current) use of aspirin
CPT/HCPCS: 99282; 30901

== ENCOUNTER 2025-01-19 00:51 | Emergency (ER) | payer OTHER, SELFPAY ==
[2025-01-19 00:52] VITALS: BP 154/66
--- NOTE | 2025-01-19 01:21 | ED.GENMED ---
History of Present Illness
<Shilpi Suresh MD, Resident - Last Filed: 01/19/25 04:59>
General
Chief Complaint: Nose Bleed
Source: patient and significant other
Exam Limitations: none
Time Seen by Provider: 01/19/25 01:19
Nursing documentation reviewed up to this point in time: agreed with
History of Present Illness
History of Present Illness:
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
About 2.5hr ago patient was awoken from sleep due to bleeding from L nostril. Tried applying external pressure clamp onto nostrils for 15 mins, which did not stop the bleeding. Then tried 30 mins, which also did not work. They put the clamp back on
and came to the ED - it has been on for the last ~45mins. Pt stated that he felt blood going back into his throat, which he was coughing on. Yesterday, he bought afrin spray from [facility], which he used in the R nostril. Did not use in the L nostril
today. He was here on (3 days ago) for uncontrolled epistaxis from R nostril, which was 'initially packed with epinephrine soaked pledget, after removal there was evidence of recent bleeding to the anterior nasal septum and this was
cauterized in 2 separate locations with no further bleeding identified.' Pt has had no bleeding from R nostril since and has been applying neosporin on a qtip to the cauterized area.
Denies any recent changes to warfarin dosing. Denies any recent URI or colds requiring frequent nose blowing. States that he has had nosebleeds in the past but hasn't for the last yr aside from last . INR was last measured 3 weeks ago at 3.2
(goal 2-3).
Phy Exam
<Shilpi Suresh MD, Resident - Last Filed: 01/19/25 04:59>
Physical Exam
Physical Exam:
General: well-appearing, in mild distress
ENT: dried blood around bilateral nares and lips, external compression pincer on nose
Cardiopulm: RRR, no resp distress, no wheezing
Abd: non-distended
MSK: no edema
Course
<Shilpi Suresh MD, Resident - Last Filed: 01/19/25 04:59>
Orders/Labs/Results
Orders:
Orders
01/19/25 02:04
Prothrombin Time Urgent
Abnormal Lab Results
01/19/25
02:04
PT 33.5 H Sec
(11.4-14.6)
Vital Signs
Initial and Last Documented VS:
Initial Vital Signs
Temp Pulse Resp BP Pulse Ox
97.4 F 74 24 154/66 97
01/19/25 00:52 01/19/25 00:52 01/19/25 00:52 01/19/25 00:52 01/19/25 00:52
Last Documented Vital Signs
Temp Pulse Resp BP Pulse Ox
97.4 F 63 18 143/54 97
01/19/25 00:52 01/19/25 04:02 01/19/25 04:02 01/19/25 04:02 01/19/25 04:02
<Preeti Arambula DO - Last Filed: 01/19/25 03:52>
Orders/Labs/Results
Orders:
Orders
01/19/25 02:04
Prothrombin Time Urgent
Abnormal Lab Results
01/19/25
02:04
PT 33.5 H Sec
(11.4-14.6)
Vital Signs
Initial and Last Documented VS:
Initial Vital Signs
Temp Pulse Resp BP Pulse Ox
97.4 F 74 24 154/66 97
01/19/25 00:52 01/19/25 00:52 01/19/25 00:52 01/19/25 00:52 01/19/25 00:52
Last Documented Vital Signs
Temp Pulse Resp BP Pulse Ox
97.4 F 63 18 143/54 97
01/19/25 00:52 01/19/25 04:02 01/19/25 04:02 01/19/25 04:02 01/19/25 04:02
Procedures
<Shilpi Suresh MD, Resident - Last Filed: 01/19/25 04:59>
Nosebleed
Drug treatment: Lidocaine and Epinephrine
Treatment: local pressure applied and Silver nitrate cautery (x2 on L septum, anterior & posterior)
Post treatment bleeding: none- good control
<Shilpi Suresh MD, Resident - Last Filed: 01/19/25 04:59>
*Pulse Oximetry
SaO2: 97
Oxygen Mode of Delivery: Room air
Patient hypoxic: no
*Critical Care Note
Total Time (30-74mins, 75-104mins- exclusive of procedures): Not Applicable
<Shilpi Suresh MD, Resident - Last Filed: 01/19/25 04:59>
Update Note
Update Note:
2:30am
Cauterized 2 areas on L nasal septum (after 10-15mins of lido-epi pledget)
No bleeding visualized after procedure
Will continue to observe prior to discharge
ED Attending Note
<Shilpi Suresh MD, Resident - Last Filed: 01/19/25 04:59>
-
Portions of this chart may have been created with voice recognition software.� Occasional wrong word or��sound alike� substitutions may have occurred due to the inherent limitations of voice recognition software.
<Preeti Arambula DO - Last Filed: 01/19/25 03:52>
ED Attending Note
Patient seen and examined by attending physician: Yes
I performed the substantive portion of visit, reviewed & personally made and approve the management plan that is documented in note by myself or PRISCILLA.: Yes
ED Attending Note:
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 Evaluated in this ED 3 days ago with acute right nostril epistaxis. Found to have bleeding from his right anterior septum that
was successfully cauterized with silver nitrate.
Patient returns tonight after waking with spontaneous bleeding from his left nostril. Bleeding temporized with local pressure/nasal clip but resumes when nasal clip is removed.
Since last visit here a few days ago he has been compliant with twice daily bacitracin ointment to bilateral nostrils twice daily. He has also been using Afrin nasal spray reportedly as instructed.
He denies dizziness nor lightheadedness. No nausea no vomiting.
INR approximately 3 weeks ago. 3.2. His goal is between 2-3. No recent change in Coumadin dose. No recent antibiotics nor other medication changes.
89-year-old gentleman appears his stated age, bright and alert, pleasant, appears in no acute distress. is accompanying. Nasal clip in place. Currently no active bleeding with nasal clip in place. Once removed scant oozing of blood from
left nostril.
HEENT: Large organized clot within the left nostril. Anterior septum is erythematous with what appears to be a pinpoint area of mild active oozing from the posterior aspect of the anterior septum.
Posterior pharynx is streaked with blood but no evidence of active streaming of blood posteriorly.
Lungs: No respiratory distress.
Skin is warm and dry, normal color. Good turgor.
Awake alert and oriented x 3. No focal neurodeficits. Gait is steady.
Left nostril anesthetized and decongested with cotton pledgets soaked with lidocaine and epinephrine.
Will check PT/INR
Will plan for silver nitrate cautery.
03:45
Left nostril reexamined and reveals a pinpoint area of active slow ooze along the anterior septum of the left nostril.
Successfully cauterized with silver nitrate by Shilpi Suresh.
There has been no return of bleeding during period of observation.
INR slightly supratherapeutic at 3.26. Recommend he hold his Coumadin for today, Sunday, January 19. Resume regular Coumadin dosing thereafter and recommend follow-up INR later this week or early next week.
Patient will also be referred to ENT for further evaluation.
Return precautions discussed.
Discharge Plan
Departure
Patient Disposition: Home (Routine Discharge)
Date of Disposition: 01/19/25
Time of Disposition: 03:50
Patient with high blood pressure during this ER visit?: No
Condition: Good
Covid-19: Not Applicable
Discharge Problem:
Acute anterior epistaxis
Instructions: Nosebleeds (DC)
Prescriptions:
No Action
atorvastatin 40 mg Tablet
40 mg PO DAILY
cyanocobalamin (vitamin B-12) [Vitamin B-12] 1,000 mcg Tablet
1,000 mcg PO MOTUWETHFR
aspirin 81 mg Tablet,Delayed Release (Dr/Ec)
81 mg PO DAILY
acetaminophen 500 mg Tablet
1,000 mg PO Q6H PRN (Reason: pain)
tamsulosin 0.4 mg Capsule
0.4 mg PO DAILY
albuterol sulfate [ProAir HFA] 90 mcg/actuation Hfa Aerosol Inhaler
2 puff INHALATION PRN PRN (Reason: SOB)
finasteride 5 mg Tablet
5 mg PO QPM
cholecalciferol (vitamin D3) [Vitamin D3] 25 mcg (1,000 unit) Capsule
25 mcg PO MOTH
Multaq 400 mg Tablet
400 mg PO BID
furosemide [Lasix] 20 mg Tablet
20 mg PO DAILYPRN PRN (Reason: LLE swelling)
divalproex [Depakote ER] 500 mg Tablet Extended Release 24 Hr
500 mg PO DAILY
divalproex [Depakote ER] 250 mg Tablet Extended Release 24 Hr
250 mg PO QPM
warfarin 7.5 mg Tablet
7.5 mg PO MOTH
warfarin 5 mg Tablet
5 mg PO SUTUWEFRSA
Referrals:
Chet Chavez MD [Family Provider, Family Practice]
Efren Vidales MD [Active, ENT] - Call in 1-3 days for appt
Activity Restrictions/Additional Instructions:
You were seen in the ED for a nosebleed. You were found to have bleeding from the septum (middle division) of your nose inside the left nostril. You were treated with epinephrine packing followed by cauterization in two spots.
Refrain from blowing your nose, sniffing, or picking the nose for the next 3 days. This includes avoiding putting a qtip with neosporin in the nostril. You may put vaseline around the outside of your nostrils. After the next ~3 days, please purchase
over the counter saline nasal spray (non-medicated, just saline) to use in both nostrils to keep them moist and to prevent nosebleeds. Stop using the nasal afrin spray.
Your INR was 3.26. Hold your Coumadin for Sunday. You can resume your usual Coumadin dose thereafter. You should have repeat Coumadin level done at the end of this week versus early next week.
You have been provided with name and number of one of our ENT specialist to follow-up to recheck nosebleeds.
Return to the ED if you have severe recurrent intractable nosebleeds.
Interventions
Interventions:
*Risk Screen - Suicide Last Done: 01/19/25 00:52
*General Assessment Last Done: 01/19/25 01:58
*Neglect/Abuse Screening Last Done: 01/19/25 00:52
*ED COVID-19 Vaccine History Last Done: 01/19/25 01:58
*ED Influenza Vaccine History Last Done: 01/19/25 01:58
[facility] Risk Assessment Tool Last Done: 01/19/25 01:58
*Nursing Disposition Last Done: 01/19/25 03:56
ED-EENT Assessment Last Done: 01/19/25 01:58
Discharge Date and Time
Discharge Date/Time: 01/19/25 04:03
Print Language: NAURUAN
[2025-01-19 01:58] VITALS: BMI 26.3
[2025-01-19 02:20] LABS: INR 3.26; PT 33.5 Sec (11.4-14.6)
[2025-01-19 04:02] VITALS: BP 143/54
== END 2025-01-19 04:03 | disposition home or self-care (01) ==
LOC: EMR 00:51
PROVIDERS: EMERGENCY PHYSICIAN Emergency Medicine; FAMILY PHYSICIAN Family Medicine
DX: R04.0 Epistaxis (principal); D68.51 Activated protein C resistance; I48.91 Unspecified atrial fibrillation; Z79.01 Long term (current) use of anticoagulants
CPT/HCPCS: 99283; 30901; 30905; 85610